=== PATIENT | male | born 1985 | race Caucasian/White ===

== ENCOUNTER 2017-07-09 21:28 | Inpatient (IN) | payer OTHER, MEDICAID ==
[2017-07-09] MEDS ORDERED: NS 1,000 ML IV ONE (22:11)
--- NOTE | 2017-07-09 22:11 | EDPHY ---
H & P Stated Complaint: right leg pain yesterday and today pt has had a fever 102F Time Seen by Provider: 07/09/17 22:11 HPI/ROS: HPI CHIEF COMPLAINT: Right leg spasms, fever HISTORY OF PRESENT ILLNESS: Patient is a 32-year-old male, he has cerebral palsy, he is wheelchair-bound, he presents to the emergency room with fever to 102 today. They noticed he had some increasing spasms of his right leg any felt very warm. He took his temperature at home was 102. He has not had any vomiting or diarrhea. No cough. No respiratory symptoms. He does have a condom catheter on. They do report his urine is darker than usual. The patient is otherwise not been in any distress. Past Medical History: Cerebral palsy, wheelchair-bound, all 4 extremity contractures, seizure, condom cath Past Surgical History: No recent surgery Social History: Lives locally, mom at bedside. Family History: Noncontributory ROS REVIEW OF SYSTEMS: A comprehensive 10 point review of systems is otherwise negative aside from elements mentioned in the history of present illness. Exam Constitutional appears well nontoxic no acute distress, in a wheelchair triage nursing summary reviewed, vital signs reviewed, awake/alert. Temperature 38 degrees point tube Eyes normal conjunctivae and sclera, EOMI, PERRLA. HENT normal inspection, atraumatic, moist mucus membranes, no epistaxis, neck supple/ no meningismus, no raccoon eyes. Respiratory clear to auscultation bilaterally, normal breath sounds, no respiratory distress, no wheezing. Cardiovascular rate normal, regular rhythm, no murmur, no edema, distal pulses normal. Gastrointestinal soft, non-tender, no rebound, no guarding, normal bowel sounds, no distension, no pulsatile mass. Genitourinary no CVA tenderness. Musculoskeletal contracted 4 extremities. Wheelchair-bound. Skin pink, warm, & dry, no rash, skin atraumatic. Neurologic at neurological baseline. Psychiatric normal mood/affect. Heme/Lymph/Immune no lymphadenopathy. Differential Diagnosis: Includes but is not limited to in a particular order sepsis, bacteremia, UTI, pneumonia, aspiration pneumonia, electrolyte disturbance Medical Decision Making: Plan for this patient will do a rather large workup for acute febrile illness. Including lactic acid, blood cultures, chest x-ray, urine, IV fluids, acute fever control Re-evaluation: 0106: Patient's blood work reviewed shows a high leukocytosis. Additionally patient had a fever 102. Lactic less than 2. Sodium noted to be 130. His urinalysis is a clean catch urine. This shows UTI. Urine cultures been ordered. Patient received 1 g of Rocephin here in the emergency room. Additionally the x-rays have been reviewed. There is no focal pneumonia seen on his chest x-ray, is KUB does show abnormal bowel gas pattern concerning for SBO versus ileus. Will proceed with CT scan abdomen pelvis with IV contrast. Rule out acute inflammatory process seen on CT with a high white count fever. Urinalysis did result does show bacteria. IV Rocephin has been ordered. Plan will be for admission to the hospital for UTI IV antibiotics and fever control. . CT scan abdomen pelvis with IV contrast shows bladder wall thickening consistent with cystitis. Additionally the patient has an ileus. Constipation and most likely fecal impaction. Given the patient's temperature of a 102 degrees, leukocytosis, will admit to the hospital service for hydration, IV antibiotics for cystitis. Source: Patient - Personal History Current Tetanus/Diphtheria Vaccine: Yes Current Tetanus Diphtheria and Acellular Pertussis (TDAP): Yes - Medical/Surgical History Hx Asthma: No Hx Chronic Respiratory Disease: No Hx Diabetes: No Hx Cardiac Disease: No Hx Renal Disease: No Hx Cirrhosis: No Hx Alcoholism: No Hx HIV/AIDS: No Hx Splenectomy or Spleen Trauma: No Other PMH: spine surgery, left hip surgery, cerebral palsy - Social History Smoking Status: Never smoked Constitutional: Initial Vital Signs Temperature (C) 38.2 C 07/09/17 21:34 Heart Rate 108 H 07/09/17 21:34 Respiratory Rate 16 07/09/17 21:34 Blood Pressure 103/69 07/09/17 21:34 O2 Sat (%) 94 07/09/17 21:34 O2 Delivery Mode Room Air Allergies/Adverse Reactions: Sulfa (Sulfonamide Antibiotics) Allergy (Verified 07/09/17 21:40) Home Medications: Medication Instructions Recorded Acyclovir [Zovirax 400 mg (*)] 400 mg PO BID 07/10/17 Levothyroxine [Synthroid 25 mcg 25 mcg PO DAILY06 07/10/17 (*)] OXcarbazepine [Trileptal 300mg (*)] 300 mg PO DAILY 05/12/18 Oxcarbazepine 600 mg PO HS 07/10/17 Cefdinir [Omnicef (*)] 300 mg PO BID #24 cap 07/11/17 Polyethylene Glycol 3350 [Miralax 17 gm PO DAILY PRN pkt 07/11/17 17 gm (*)] Sennosides/Docusate Sodium 1 - 2 tab PO BID tab 07/11/17 [Senokot-S] Medical Decision Making - Data Points Laboratory Results: Laboratory Results 07/09/17 22:40 07/09/17 22:40 Microbiology Results: MICROBIOLOGY 07/10/17 00:00 Urine,Clean Catch Urine Culture - Preliminary Klebsiella Aerogenes [place] Types 07/09/17 22:30 Blood Blood Culture - Preliminary 07/09/17 22:40 Blood Blood Culture - Preliminary Medications Given: Acetaminophen (Tylenol) 650 mg PO Q4HRS PRN PRN Reason: Pain, Mild/Fever, Can Take PO Stop: 01/06/18 02:01 Last Admin: 07/10/17 22:11 Dose: 650 mg Acyclovir (Acyclovir) 400 mg PO BID [facility] Stop: 08/09/17 20:59 Last Admin: 07/11/17 20:51 Dose: 400 mg Enoxaparin Sodium (Lovenox) 40 mg SC DAILY [facility] Stop: 01/06/18 08:59 Last Admin: 07/11/17 08:41 Dose: 40 mg Levothyroxine Sodium (Synthroid) 25 mcg PO DAILY06 [facility] Stop: 01/07/18 05:59 Last Admin: 07/12/17 06:38 Dose: 25 mcg Magnesium Hydroxide (Milk Of Magnesia) 30 ml PO DAILY PRN; Protocol PRN Reason: Constipation Stop: 01/06/18 02:03 Last Admin: 07/11/17 09:08 Dose: 30 ml Oxcarbazepine (Trileptal) 600 mg PO HS [facility] Stop: 01/06/18 20:59 Last Admin: 07/11/17 20:51 Dose: 600 mg Oxcarbazepine (Trileptal) 300 mg PO DAILY [facility] Stop: 01/07/18 08:59 Last Admin: 07/11/17 08:41 Dose: 300 mg Senna/Docusate Sodium (Senokot-S) 1 - 2 tab PO BID [facility] PRN Reason: Protocol Stop: 01/06/18 08:59 Last Admin: 07/11/17 22:57 Dose: Not Given Discontinued Medications Acetaminophen (Tylenol) 1,000 mg PO EDNOW ONE Stop: 07/09/17 22:21 Last Admin: 07/09/17 23:04 Dose: 1,000 mg Sodium Chloride (Ns) 1,000 mls @ 0 mls/hr IV EDNOW ONE; Wide Open PRN Reason: Protocol Stop: 07/09/17 22:12 Last Admin: 07/09/17 23:04 Dose: 1,000 mls Ceftriaxone Sodium/Dextrose (Rocephin 1 Gm (Premix)) 50 mls @ 100 mls/hr IV EDNOW ONE PRN Reason: Protocol Stop: 07/10/17 00:48 Last Admin: 07/10/17 00:29 Dose: 50 mls Ceftriaxone Sodium/Dextrose (Rocephin 1 Gm (Premix)) 50 mls @ 100 mls/hr IV HS HAM PRN Reason: Protocol Stop: 08/09/17 22:46 Last Admin: 07/10/17 23:35 Dose: 50 mls Ceftriaxone Sodium/Dextrose (Rocephin 1 Gm (Premix)) 50 mls @ 100 mls/hr IV ONCE ONE PRN Reason: Protocol Stop: 07/11/17 11:48 Last Admin: 07/11/17 12:22 Dose: 50 mls Departure - Departure Disposition: [facility] Inpatient Acute Clinical Impression: Ileus, Fecal impaction UTI (urinary tract infection) Qualifiers: Urinary tract infection type: acute cystitis Hematuria presence: with hematuria Qualified Code(s): N30.01 - Acute cystitis with hematuria Condition: Fair
[2017-07-09] MEDS ORDERED: ACETAMINOPHEN 500 MG TAB PO ONE (22:20)
[2017-07-09 22:59] LABS: PLATELET COUNT 215 10^3/uL (150-400)
[2017-07-09 23:08] LABS: INR 1.29 (0.83-1.16); PROTIME(PATIENT) 16.3 SEC (12.0-15.0)
[2017-07-09 23:10] LABS: CREATINE KINASE 102 IU/L (0-224)
[2017-07-10] MEDS ORDERED: NS 1,000 ML IV ONE (00:53)
[2017-07-10] MEDS ORDERED: IOPAMIDOL (ISOVUE-300) 100 ML BTL ONE (00:57)
[2017-07-10] MEDS ORDERED: ONDANSETRON 4 MG/2 ML VIAL IVP PRN (02:02)
[2017-07-10] MEDS ORDERED: ONDANSETRON DISINTEGRATING 4 MG TAB PO PRN (02:02)
[2017-07-10] MEDS ORDERED: POLYETHYLENE GLYCOL 3350 17 GM PKT PO PRN (02:04)
[2017-07-10] MEDS ORDERED: LACTULOSE 20 GM/30 ML UDCUP PO PRN (02:04)
[2017-07-10] MEDS ORDERED: BISACODYL 10 MG SUPP PR PRN (02:04)
--- NOTE | 2017-07-10 02:28 | PDGENHP ---
History and Physical - Chief Complaint Fever - History of Present Illness 32 yo M w/ CP and seizure d/o presents w/ fever. Patient's mother noted increased spasticity today. They checked his temperature and noted it was elevated so she brought him into the ED. Upon arrival his T was 38.2 and his UA was grossly infectious on a specimen from a new condom cath. He has no prior hx of UTI's. In addition, patient has not had a BM for 4 days and has been uncomfortable as a result. CT performed in the ED confirmed cystitis and fecal impaction. History Information - Allergies/Home Medication List Allergies/Adverse Reactions: Sulfa (Sulfonamide Antibiotics) Allergy (Verified 07/09/17 21:40) Home Medications: Acyclovir 07/09/17 [Last Taken Unknown] Synthroid 07/09/17 [Last Taken Unknown] Trileptal 300mg (*) 07/09/17 [Last Taken Unknown] I have personally reviewed and updated: family history, medical history - Past Medical History seizures Additional medical history: Cerebral Palsy - Surgical History Additional surgical history: L BRANDI. Spinal surgery for scoliosis - Family History Positive for: cancer - Social History Smoking Status: Never smoked Review of Systems Review of Systems: ROS: 10pt was reviewed & negative except for what was stated in HPI & below Physical Exam Physical Exam: Temp Pulse Resp BP Pulse Ox 36.7 C 96 18 104/65 92 07/10/17 02:00 07/10/17 02:00 07/10/17 02:00 07/10/17 02:00 07/10/17 02:00 Constitutional: no apparent distress, chronically ill appearing Eyes: anicteric sclera, No scleral injection Ears, Nose, Mouth, Throat: moist mucous membranes, no oral mucosal ulcers Cardiovascular: regular rate and rhythym, no murmur, rub, or gallop Respiratory: no respiratory distress, no rales or rhonchi Gastrointestinal: normoactive bowel sounds, soft, non-tender abdomen, distension , No guarding, No rebound Skin: warm, normal color Musculoskeletal: no joint effusions, other (LUE contracture) Neurologic: other (LUE contracture, minimally verbal) Lab Data & Imaging Review 07/09/17 22:40 07/09/17 22:40 WBC 17.18 10^3/uL (3.80-9.50) H 07/09/17 22:40 RBC 4.91 10^6/uL (4.40-6.38) 07/09/17 22:40 Hgb 14.9 g/dL (13.7-17.5) 07/09/17 22:40 Hct 43.4 % (40.0-51.0) 07/09/17 22:40 MCV 88.4 fL (81.5-99.8) 07/09/17 22:40 MCH 30.3 pg (27.9-34.1) 07/09/17 22:40 MCHC 34.3 g/dL (32.4-36.7) 07/09/17 22:40 RDW 13.5 % (11.5-15.2) 07/09/17 22:40 Plt Count 215 10^3/uL (150-400) 07/09/17 22:40 MPV 9.1 fL (8.7-11.7) 07/09/17 22:40 Neut % (Auto) 83.0 % (39.3-74.2) H 07/09/17 22:40 Lymph % (Auto) 10.0 % (15.0-45.0) L 07/09/17 22:40 [place] % (Auto) 6.3 % (4.5-13.0) 07/09/17 22:40 Eos % (Auto) 0.0 % (0.6-7.6) L 07/09/17 22:40 Baso % (Auto) 0.1 % (0.3-1.7) L 07/09/17 22:40 Nucleat RBC Rel Count 0.0 % (0.0-0.2) 07/09/17 22:40 Absolute Neuts (auto) 14.25 10^3/uL (1.70-6.50) H 07/09/17 22:40 Absolute Lymphs (auto) 1.72 10^3/uL (1.00-3.00) 07/09/17 22:40 Absolute Monos (auto) 1.08 10^3/uL (0.30-0.80) H 07/09/17 22:40 Absolute Eos (auto) 0.00 10^3/uL (0.03-0.40) L 07/09/17 22:40 Absolute Basos (auto) 0.02 10^3/uL (0.02-0.10) 07/09/17 22:40 Absolute Nucleated RBC 0.00 10^3/uL (0-0.01) 07/09/17 22:40 Immature Gran % 0.6 % (0.0-1.1) 07/09/17 22:40 Immature Gran # 0.11 10^3/uL (0.00-0.10) H 07/09/17 22:40 PT 16.3 SEC (12.0-15.0) H 07/09/17 22:40 INR 1.29 (0.83-1.16) H 07/09/17 22:40 APTT 30.7 SEC (23.0-38.0) 07/09/17 22:40 VBG Lactic Acid 1.1 mmol/L (0.7-2.1) 07/09/17 22:40 Sodium 130 mEq/L (135-145) L 07/09/17 22:40 Potassium 4.0 mEq/L (3.5-5.2) 07/09/17 22:40 Chloride 95 mEq/L (97-110) L 07/09/17 22:40 Carbon Dioxide 21 mEq/l (22-31) L 07/09/17 22:40 Anion Gap 14 mEq/L (8-16) 07/09/17 22:40 BUN 10 mg/dL (7-23) 07/09/17 22:40 Creatinine 0.6 mg/dL (0.7-1.3) L 07/09/17 22:40 Estimated GFR > 60 07/09/17 22:40 Glucose 130 mg/dL (70-100) H 07/09/17 22:40 Calcium 8.9 mg/dL (8.5-10.4) 07/09/17 22:40 Magnesium 2.4 mg/dL (1.6-2.3) H 07/09/17 22:40 Total Bilirubin 0.9 mg/dL (0.1-1.4) 07/09/17 22:40 Conjugated Bilirubin 0.5 mg/dL (0.0-0.5) 07/09/17 22:40 Unconjugated Bilirubin 0.4 mg/dL (0.0-1.1) 07/09/17 22:40 AST 18 IU/L (17-59) 07/09/17 22:40 ALT 25 IU/L (21-72) 07/09/17 22:40 Alkaline Phosphatase 105 IU/L (38-126) 07/09/17 22:40 Creatine Kinase 102 IU/L (0-224) 07/09/17 22:40 CK-MB (CK-2) Fraction 0.23 ng/mL (0.00-3.19) 07/09/17 22:40 Troponin I < 0.012 ng/mL (0.000-0.034) 07/09/17 22:40 Total Protein 7.2 g/dL (6.3-8.2) 07/09/17 22:40 Albumin 4.2 g/dL (3.5-5.0) 07/09/17 22:40 Lipase 29 IU/L (23-300) 07/09/17 22:40 Urine Color YELLOW 07/09/17 22:12 Urine Appearance TURBID 07/09/17 22:12 Urine pH 7.0 (5.0-7.5) 07/09/17 22:12 Ur Specific [place] 1.026 (1.002-1.030) 07/09/17 22:12 Urine Protein 1+ (NEGATIVE) H 07/09/17 22:12 Urine Ketones 1+ (NEGATIVE) H 07/09/17 22:12 Urine Blood 1+ (NEGATIVE) H 07/09/17 22:12 Urine Nitrate NEGATIVE (NEGATIVE) 07/09/17 22:12 Urine Bilirubin NEGATIVE (NEGATIVE) 07/09/17 22:12 Urine Urobilinogen NEGATIVE EU (0.2-1.0) 07/09/17 22:12 Ur Leukocyte Esterase NEGATIVE (NEGATIVE) 07/09/17 22:12 Urine RBC 15-25 /hpf (0-3) H 07/09/17 22:12 Urine WBC 50-182 /hpf (0-3) H 07/09/17 22:12 Ur Epithelial Cells NONE SEEN /lpf (NONE-1+) 07/09/17 22:12 Amorphous Sediment PRESENT /hpf (NONE-1+) 07/09/17 22:12 Urine Bacteria 4+ /hpf (NONE SEEN) H 07/09/17 22:12 Urine Mucus 4+ /lpf (NONE-1+) H 07/09/17 22:12 Urine Glucose NEGATIVE (NEGATIVE) 07/09/17 22:12 Imaging Review: Imaging Impressions Chest X-Ray 07/09/17 22:11 Impression: 1. No definite pneumonia. 2. Possible ileus. Visualized and Interpreted Chest x-ray results: Yes Chest X-Ray results: no infiltrate Assessment & Plan Assessment: 32 yo M w/ CP p/w sepsis 2/2 UTI and fecal impaction. Plan: 1. Sepsis 2/2 UTI - 2/4 SIRS on presentation (T, WBC). Source most likely UTI noting infectious UA and cystitis noted on CT. He has no prior hx of UTIs. - Blood and urine cultures - CTX 1 gD - Discussed case w/ Dr. Dillard 2. Constipation, fecal impaction - No BM x4 days; fecal impaction noted on CT. - Will trial enema now - Bowel regimen ordered 3. 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 - Continue home meds, needs reconciliation - Mom interested in establishing with a neurologist after discharge Diet - Regular Code - Ful Ppx - LMWH Dispo - Admit under observation status
[2017-07-10] MEDS: MAGNESIUM HYDROXIDE 30 ML UDCUP PO PRN (06:51)
[2017-07-10] MEDS: SENNOSIDES/DOCUSATE SODIUM TAB PO SCH ×2 (10:03→22:11)
[2017-07-10] MEDS: ENOXAPARIN 40 MG/0.4 ML SYR SC SCH (10:04)
[2017-07-10] MEDS: ACETAMINOPHEN 325 MG TAB PO PRN ×2 (12:48→22:11)
[2017-07-10 14:10] LABS: PLATELET COUNT 191 10^3/uL (150-400)
--- NOTE | 2017-07-10 14:56 | HOSPPROG ---
Hospitalist Progress Note Assessment/Plan: # UTI - cont rocephin, follow urine cx # constipation/ileus - had a BM, but still distended - cont bowel reg - recheck AXR # persistent leukocytosis - unclear how chronic this is - will monitor as an inpatient and recheck tomorrow # cerebral palsy - would like a new outpatient neurologist # seizure disorder - cont trileptal # hypoNa - recheck tomorrow Subjective: had a BM today; long discussion with his Mom Objective: Vital Signs Temp Pulse Resp BP Pulse Ox 37.1 C 91 16 120/77 97 07/10/17 11:18 07/10/17 11:18 07/10/17 11:18 07/10/17 11:18 07/10/17 11:18 Laboratory Results 07/10/17 14:00 07/09/17 07/10/17 07/11/17 05:59 05:59 05:59 Intake Total 1000 1250 Output Total 500 1200 Balance 500 50 PT 16.3 SEC (12.0-15.0) H 07/09/17 22:40 INR 1.29 (0.83-1.16) H 07/09/17 22:40 - Time Spent With Patient Time Spent with Patient: greater than 35 minutes Time Spent with Patient: Greater than 35 minutes spent on this patients care, greater than 50% of time spent counseling, educating, and coordinating care regarding the above mentioned plan. - Physical Exam Constitutional: no apparent distress Cardiovascular: regular rate and rhythym, no murmur, rub, or gallop Respiratory: no respiratory distress, no rales or rhonchi, clear to auscultation Gastrointestinal: normoactive bowel sounds, distension, other (mildly tympanic) ICD10 Worksheet Patient Problems: Problems Problem Status Onset UTI (urinary tract infection) Acute Ileus Acute Fecal impaction Acute
--- NOTE | 2017-07-10 15:30 | PDMN ---
Medical Necessity Medical necessity: C/M review: est. > 2 MN LOS for eval and TX of acute and persistent urinar ytract infection, constipation / ileus - patient had BM bis is still distended leukocytosis, hyponatremia requiring planned 07/10/2017 abdominal xray, recheck labs 07/11/2017, 07/11/2017, ongoing IV Ceftriaxone, bowel regimen, comorbid cerebral palsy, seizure disorder per 07/10/2017 Hospitalist progress note.
--- NOTE | 2017-07-10 16:25 | ASMTCMCOM ---
CM Note CM Note Notes: Patient admitted for possible UTI, constipation and has a hx of CP. I have reviewed chart/notes. It appears that patient has good family support. There are no therapy orders at this time. Would anticipate patient would be able to discharge back home with support of mother when medically stable. CM will continue to follow for any discharge needs. Date Signed: 07/10/2017 08:00 AM Electronically Signed By:Milla Cruz RN
--- NOTE | 2017-07-10 18:32 | HOSPPROG ---
Hospitalist Progress Note Assessment/Plan: Prolonged service, direct patient care, [id number] with patient and his senior quality control inspector (Kris), at bedside, from 6:00 p.m. Until 6:30 p.m. (30 minutes), addressing the following: -notified by nurse that patient's mother raised the concern of systemic herpes virus as possible cause of fever -reviewed progress note by Dr. 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, and he has been on suppressive acyclovir since -Kris reports that the patient experienced a recent, small eruption of a singular , non pustulant lesion on his left buttocks -physical exam demonstrates that the patient is calm, in no distress, denying pain w/o evidence of meningismus, full range of motion of the neck without any pain, no oral lesions on the tongue or palate, no evidence of vesicular lesions on either buttock, with normal skin exam on his hindquarters -consequently, I do not believe that the patient has any evidence of active herpes simplex virus, neither on his skin or neurologically, and there is no indication for further workup, including lumbar puncture, at this time -patient is currently on suppressive dosing of acyclovir 400 mg twice daily, and this appears to be appropriate, as there is no evidence of acute recurrence requiring higher, weight based dosing -will continue the current plan as outlined by Dr. Boyd in his daily progress note Objective: Vital Signs Temp Pulse Resp BP Pulse Ox 37.2 C 87 18 116/69 99 07/10/17 15:09 07/10/17 15:09 07/10/17 15:09 07/10/17 15:09 07/10/17 15:09 Laboratory Results 07/10/17 14:00 07/09/17 07/10/17 07/11/17 05:59 05:59 05:59 Intake Total 1000 2050 Output Total 500 2150 Balance 500 -100 PT 16.3 SEC (12.0-15.0) H 07/09/17 22:40 INR 1.29 (0.83-1.16) H 07/09/17 22:40 ICD10 Worksheet Patient Problems: Problems Problem Status Onset Fecal impaction Acute Ileus Acute UTI (urinary tract infection) Acute
[2017-07-10] MEDS: ACYCLOVIR 400 MG TAB PO SCH (22:11)
[2017-07-10] MEDS: OXcarbazepine 300 MG TAB PO SCH (22:11)
[2017-07-11] MEDS: LEVOTHYROXINE 25 MCG TAB PO SCH (05:39)
[2017-07-11 08:01] LABS: PLATELET COUNT 180 10^3/uL (150-400)
[2017-07-11] MEDS: ACYCLOVIR 400 MG TAB PO SCH ×2 (08:40→20:51)
[2017-07-11] MEDS: ENOXAPARIN 40 MG/0.4 ML SYR SC SCH (08:41)
[2017-07-11] MEDS: OXcarbazepine 300 MG TAB PO SCH ×2 (08:41→20:51)
[2017-07-11] MEDS: SENNOSIDES/DOCUSATE SODIUM TAB PO SCH ×2 (08:41→22:57)
[2017-07-11] MEDS: MAGNESIUM HYDROXIDE 30 ML UDCUP PO PRN (09:08)
--- NOTE | 2017-07-11 11:35 | ASMTLACE ---
LACE Length of stay for Answers: 1 day current admission Acuity / Level of Answers: Yes Care: Did the patient have an inpatient admission? Comorbidities - select Answers: Other Notes: CP, UTI, fecal impactio n, all that apply # of Emergency department Answers: 1-2 visits in the last 6 months Score: 6 Date Signed: 07/11/2017 11:35 AM Electronically Signed By:Valerie Alfonso LCSW
--- NOTE | 2017-07-11 11:48 | GDS ---
[f rep st] DISCHARGE SUMMARY ALL DIAGNOSES: 1. Urinary tract infection. 2. Sepsis with fever and leukocytosis due to urinary tract infection. 3. Hyponatremia, which has improved. 4. 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 5. Constipation and ileus. 6. Seizure disorder. HOSPITAL COURSE: This is a 32-year-old man who is nonverbal at baseline, bedbound, who presents with a fever and increasing spasticity. He is very well cared for by his mother and also by [facility]. Imaging of his abdomen revealed significant constipation, as well as dilated small bowel, which appeared consistent with ileus. Also showed a urinary bladder with thickened torres. Urinalysis concerning for urinary tract infection. Culture on discharge is growing a gram-negative lactose dental hygienist at greater than 100,000 CFUs per mL, as well as some normal skin and urogenital radha. He has been treated with Rocephin as an inpatient. He had 1 fever the night prior to discharge, his leukocytosis has improved significantly. I think at this point, it is safe to discharge home with ongoing treatment with Omnicef. Given the appearance of his bladder on imaging, I am recommending a total of a 14-day course. I have warned his mother that he should not continue to have persistent fevers, and he will need to return to the emergency department if he does. The clinical appearance of his ileus and constipation have significantly improved. His abdomen is less distended than yesterday. I have recommended a bowel regimen on discharge. His hyponatremia has resolved with adequate resuscitation. He will need to establish care with a primary care physician. His mother is going to see Dr. Karrie Chavez. I think that she would be an excellent physician for the patient as well. He will also need to establish with a neurologist. I have given him referral to see Dr. Major or Dr. Shankar. I have discussed all this with his mom, as well as his father on the phone. BILLING: I spent more than 30 minutes on the day of discharge coordinating care. /[id number]/MODL MTDD
--- NOTE | 2017-07-11 15:15 | HOSPPROG ---
Hospitalist Progress Note Assessment/Plan: 32 M with cerebral palsy presents with fevers and worsening spasticity likely d/ t UTI. Also with constipation and possible ileus. # UTI - growing Klebsiella Aerogenes; discussed informally with Dr Ramírez - this was previously classified as enterobacter aerogenes - this has 82% susceptibility to rocephin; will follow sensitivities and adjust abx as necessary - cont rocephin for now - persistent fevers, leukocytosis resolving # spasticity - this has been worse over the last year; possibly represents recurrent UTI's - will ask neurology to evaluate # cerebral palsy - mother provides significant care; he also goes to [facility]- # constipation/ileus - much less distended; cont aggressive bowel regimen - cont bowel reg - recheck AXR tomorrow am # persistent leukocytosis - resolving # seizure disorder - cont trileptal # hypoNa - recheck tomorrow # dispo - hopefully ready for dc tomorrow Subjective: discussed at length with his mom; the initial plan was for discharge, however he had a recurrent fever this afternoon; given concern and underlying debility, will plan to continue to monitor as inpatient Objective: Vital Signs Temp Pulse Resp BP Pulse Ox 36.7 C 84 16 101/74 92 07/11/17 07:59 07/11/17 07:59 07/11/17 07:59 07/11/17 07:59 07/11/17 07:59 Laboratory Results 07/11/17 05:40 07/11/17 05:45 07/10/17 07/11/17 07/12/17 05:59 05:59 05:59 Intake Total 1000 2450 500 Output Total 500 3050 500 Balance 500 -600 0 PT 16.3 SEC (12.0-15.0) H 07/09/17 22:40 INR 1.29 (0.83-1.16) H 07/09/17 22:40 - Time Spent With Patient Time Spent with Patient: greater than 35 minutes Time Spent with Patient: Greater than 35 minutes spent on this patients care, greater than 50% of time spent counseling, educating, and coordinating care regarding the above mentioned plan. ICD10 Worksheet Patient Problems: Problems Problem Status Onset Fecal impaction Acute Ileus Acute UTI (urinary tract infection) Acute
[2017-07-12] MEDS: LEVOTHYROXINE 25 MCG TAB PO SCH (06:38)
[2017-07-12 07:31] VITALS: BP 111/80
--- NOTE | 2017-07-12 08:32 | HOSPPROG ---
Hospitalist Progress Note Assessment/Plan: 32 M with cerebral palsy presents with fevers and worsening spasticity likely d/ t UTI. Also with constipation and possible ileus. # UTI - growing Klebsiella Aerogenes - reviewed urine cx sensitivities and is sensitive to Rocephin - no fevers today, can go home on Levaquin (reviewed side effects with the patient's mother) # spasticity - this has been worse over the last year; possibly represents recurrent UTI's - to f/u with neurology, reviewed his care w Dr Shankar # cerebral palsy - mother provides significant care; he also goes to [facility] # constipation/ileus - much less distended; cont aggressive bowel regimen - cont bowel reg - xray shows ongoing constipation, patient is having bowel movements # persistent leukocytosis - resolving # seizure disorder - cont Trileptal # hypoNa - resolved # dispo - dc home with close f/u w his PCP Subjective: Alejandro is smiling, non verbal at baseline. Objective: Vital Signs Temp Pulse Resp BP Pulse Ox 37.0 C 84 16 111/80 92 07/12/17 07:30 07/12/17 07:30 07/12/17 07:30 07/12/17 07:30 07/12/17 07:30 Laboratory Results 07/11/17 05:40 07/11/17 05:45 07/11/17 07/12/17 07/13/17 05:59 05:59 05:59 Intake Total 2450 2110 Output Total 3050 2460 600 Balance -600 -350 -600 PT 16.3 SEC (12.0-15.0) H 07/09/17 22:40 INR 1.29 (0.83-1.16) H 07/09/17 22:40 - Physical Exam Constitutional: no apparent distress, appears nourished Ears, Nose, Mouth, Throat: hearing normal Cardiovascular: regular rate and rhythym Respiratory: no respiratory distress Gastrointestinal: normoactive bowel sounds, distension (slight) Skin: warm Musculoskeletal: other (arms and legs with contractures) Neurologic: other (alert,smiling) ICD10 Worksheet Patient Problems: Problems Problem Status Onset Fecal impaction Acute Ileus Acute UTI (urinary tract infection) Acute
[2017-07-12] MEDS: ENOXAPARIN 40 MG/0.4 ML SYR SC SCH (08:41)
[2017-07-12] MEDS: ACYCLOVIR 400 MG TAB PO SCH (08:44)
[2017-07-12] MEDS: OXcarbazepine 300 MG TAB PO SCH (08:44)
[2017-07-12] MEDS: SENNOSIDES/DOCUSATE SODIUM TAB PO SCH (08:46)
[2017-07-12] MEDS ORDERED: PROBIOTIC PO SCH (09:15)
[2017-07-12] MEDS ORDERED: [UNRECOGNIZED DRUG - OTHER] PO SCH (09:15)
--- NOTE | 2017-07-12 12:03 | GCON ---
[f rep st] CONSULTATION NEUROLOGY CONSULT REFERRING PHYSICIAN: Carlton Boyd MD CHIEF COMPLAINT: Cerebral palsy. 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 The reason for consultation is over the last year, the patient has been having spasms at his hip flex ors once every 3 months, lasting for a few seconds. This is superimposed on top of his lifelong all 4 extremity spasticity. This most recent one occurred in the setting of UTI, however, the other 2 or 3 events were spontaneous. He also has a comorbid seizure disorder with 3 grand mal seizures total in his lifetime, the last one being at age 17. They are well controlled with Trileptal. Their physi atrist, Dr. Marcus, is wondering if the Trileptal may have anything to do with the flexor spasms a t the hips or whether he may be reacting to pain from other issues, such as recurrence of herpes outb reaks. Not entirely clear what the etiology is. He has no alteration of consciousness. This is acc ording to his mother. REVIEW OF SYSTEMS: A 10-point review of systems was performed with his mother, only pertinent to the HPI. For past medical history, social history, family history, allergies, home medications, please see the history and physical dated 07/10/[address] Su. PHYSICAL EXAMINATION: VITAL SIGNS: Blood pressure 111/80, temperature 36.9, respirations 16, O2 sat s 95%. GENERAL: The patient is awake and alert, pleasant. HIGHER MENTAL FUNCTION: He was nonverba l in my presence, has severe static encephalopathy. On motor exam, he has quadriplegic spasticity wi th no overt convulsions in my presence. IMPRESSION AND PLAN: 1. Cerebral palsy. 2. Spasms. The patient is presenting with a spasm-like movement at his hip flexors once every 3 months starting over the last year. I think overall, this likely represents progression of degenerative changes in h is upper motor neurons from his cerebral palsy. This is not unusual. I counseled his mother at [place]. They will follow up with Dr. [place] to consider Botox for his baseline spasticity. For these spasms, they would be interested in trying a different seizure medication. I would not advise josh felix off antiseizure medicine without any replacement as he does have a history of seizures and may be a t risk for recurrent seizures and status epilepticus. One option we discussed was switching him from Trileptal to gabapentin very slowly, to gabapentin monotherapy, both for seizure prophylaxis and per haps helping with spasms. His mother was interested in this option. I discussed that it would be be st to orchestrate this cross titration as an outpatient. They will come and follow up with me in 4-6 weeks as an outpatient. No further recommendations now. We will sign off and follow up as needed. Fifty total minutes floor time today reviewing inpatient records, coordination of care, and in nicolasae ling the patient and his mother. Please do not hesitate to call if there are any questions or changes in neurologic status with this v macey pleasant patient. /[id number]/MODL
[2017-07-12] MEDS ORDERED: [UNRECOGNIZED DRUG - OTHER] PO SCH (13:15)
[2017-07-12] MEDS ORDERED: [UNRECOGNIZED DRUG - OTHER] PO SCH (13:15)
--- NOTE | 2017-07-12 16:14 | GDS ---
[f rep st] DISCHARGE SUMMARY DISCHARGE DIAGNOSES: 1. Urinary tract infection. 2. Spasticity. 3. Cerebral palsy. 4. Constipation/ileus. 5. Leukocytosis. 6. Seizure disorder. 7. Hyponatremia. HISTORY: The patient is a 32-year-old male with cerebral palsy. He presented with fevers and worseni ng spasticity likely due to urinary tract infection. He also had some constipation and ileus. Consult ation with Dr. Nagi Shankar. Please see the discharge summary done by Dr. Carlton Boyd on 07/11/2017 for complete details. The patient was kept overnight because of ongoing fevers. These have since resolved. CONDITION AT DISCHARGE: Stable. Blood pressure is 111/80, heart rate of 84, respiratory rate is 16, O2 sats on room air 92%. Temperature is 37 degrees Celsius. MEDICATIONS AT DISCHARGE: Please see the EMR. DISCHARGE INSTRUCTIONS: 1. To return to the ER if the patient develops fever, chills, or worsening spasticity. 2. To follow up with Neurology in the outpatient setting. Greater than 30 minutes discharging and coordinating the patient's care and followup care. /[id number]/MODL
--- NOTE | 2017-07-14 13:41 | ASDISCHSUM ---
Discharge Information Plan Status:Home with No Needs Medically Cleared to Leave:07/11/2017 Discharge Date:07/11/2017 CM D/C Disposition:Home, Routine, Self-Care ADT D/C Disposition:Home, Routine, Self-Care Projected Discharge Date:07/11/2017 12:00 PM Transportation at D/C:Family Discharge Delay Reason: Follow-Up Date:07/11/2017 12:00 PM Discharge Slot: Final Diagnosis:UTI, Fecal impaction, Ileus Placement Information Patient Contact Information Contact Name:GIANA Relationship:Mother Address:[address] [place] [address] Work Phone: [employer] Phone: [facility]/Zip Code:[place] [address] Email: Financial Information Financial Class:Medicare Primary Plan Desc:MEDICARE OUTPATIENT Primary Plan Number:[id number] Secondary Plan Desc:MEDICAID [place] Secondary Plan Number:[id number] Assessment Information [facility] CM Progress Note CM Note CM Note Notes: Patient admitted for possible UTI, constipation and has a hx of CP. I have reviewed chart/notes. It appears that patient has good family support. There are no therapy orders at this time. Would anticipate patient would be able to discharge back home with support of mother when medically stable. CM will continue to follow for any discharge needs. Date Signed: 07/10/2017 08:00 AM Electronically Signed By:Milla Cruz RN LACE LACE Length of stay for Answers: 1 day current admission Acuity / Level of Answers: Yes Care: Did the patient have an inpatient admission? Comorbidities - select Answers: Other Notes: CP, UTI, fecal impactio n, all that apply # of Emergency department Answers: 1-2 visits in the last 6 months Score: 6 Date Signed: 07/11/2017 11:35 AM Electronically Signed By:Valerie Alfonso LCSW Case Management Discharge Plan Note Case Management Discharge Discharge Order Complete? Answers: Yes Patient to Obtain Answers: via Family Medications Transportation Arranged Answers: Family/Friends Transport will Pick (Date 07/11/2017 12:00 PM & Time) Family Notified Answers: Yes Discharge Comments Notes: Patient has been discharged. Lives with his mother and has a caregiver. Family to transport. No other needs. Date Signed: 07/11/2017 11:36 AM Electronically Signed By:Valerie Alfonso LCSW Intervention Information
== END 2017-07-12 17:18 | disposition home or self-care (01) | DRG 871 ==
LOC: OBSVTOIN 07-10 02:02 → F3N 07-10 03:24
PROVIDERS: ADMIT Student in an Organized Health Care Education/Training Program; ATTEND Student in an Organized Health Care Education/Training Program
DX: A41.89 Other specified sepsis (principal); G80.0 Spastic quadriplegic cerebral palsy; N39.0 Urinary tract infection, site not specified; K56.7 Ileus, unspecified; E87.1 Hypo-osmolality and hyponatremia; K59.00 Constipation, unspecified; G40.909 Epilepsy, unspecified, not intractable, without status epilepticus; Z74.01 Bed confinement status
CPT/HCPCS: 96365; J0696; J1650; Q9967